=== PATIENT | female | born 1980 | race African-American/Black ===

== ENCOUNTER 2016-03-23 05:50 | Inpatient (IN) ==
[2016-03-15 12:26] LABS: Basophils # 0.1 10*3/uL (0.0-0.2); Basophils % 0.6 % (0.0-0.8); Eosinophils # 0.1 10*3/uL (0.0-0.87); Eosinophils % 1.2 % (0.00-10.9); Hematocrit 38.1 VOL% (35.7-47.0); Hemoglobin 12.7 GM/DL (12.0-16.0); Immature Granulocytes % 0.1 %; Immature Granulocytes Absolute 0.01 #; Lymphocytes # 2.8 10*3/uL (1.4-4.0); Lymphocytes % 35.3 % (21.3-54.2); Mean Corpuscular HGB Conc 33.3 GM/DL (32-36); Mean Corpuscular Hemoglobin 31 PG (27-34); Mean Corpuscular Volume 92.5 FL (87-102); Mean Platelet Volume 9.5 FL (9.6-12.0); Monocytes # 0.5 10*3/uL (0.11-0.8); Monocytes % 6.4 % (1.7-12.7); Neutrophils # 4.4 10*3/uL (1.4-7.4); Neutrophils % 56.4 % (38.7-73.9); Platelet Count 282 10*3/uL (130-400); Red Blood Count 4.12 10*6/uL (3.8-5.5); Red Cell Distribution Width 13.2 % (9.3-17.3); White Blood Count 7.8 10*3/uL (4.5-13.71)
[2016-03-15 12:27] LABS: Apearance,Urine CLEAR (Clear); Bilirubin,Urine Negative (Negative); Blood, Urine Large mg/dL (Negative); Glucose,Urine (UA) Negative (Negative); Ketones,Urine Negative (Negative); Mucus,Urine Occasional /LPF (Occasional); Nitrite,Urine Negative (Negative); Protein,Urine Negative; RBC,Urine 3 /HPF (0-4); Squamous Epithelial Cell,Urine Occasional /HPF (0-10); Urine Color Yellow (Yellow); Urine Specific Gravity 1.017 (1.001-1.035); WBC,Urine 1 /HPF (0-6)
[2016-03-15 12:38] LABS: PT Patient Result 10.4 SECS; Partial Thromboplastin Time 25.9 SECS (0-40)
[2016-03-15 13:02] LABS: Calcium 8.8 MG/DL (8.5-10.1); Osmolality,Calculated 282.1 MOS/KG (273-304); Potassium 3.9 MMOL/L (3.5-5.1)
--- NOTE | 2016-03-15 13:03 | EKG Report ---
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
--- NOTE | 2016-03-15 14:39 | XRay Report ---
XR chest 2V Indication: Preop evaluation Comparison: None Technique: Frontal and lateral views of the chest Findings: Heart size appears within normal limits. No focal consolidation, pleural effusion, or pneumothorax. Osseous and surrounding soft tissue structures demonstrate no acute abnormality. IMPRESSION: No acute cardiopulmonary process demonstrated. PROCEDURE INTERPRETED AT [facility] DEPARTMENT OF RADIOLOGY Final Report Signed by: Dr Tucker Guerra
[2016-03-23] MEDS ORDERED: CLINDAMYCIN INJ 900 MG in PREMIX 1 EACH IV ONE (06:00)
[2016-03-23] MEDS ORDERED: LEVOFLOXACIN INJ 750 MG in PREMIX 1 EACH IV ONE (06:00)
[2016-03-23] MEDS ORDERED: VASOPRESSIN 20 UNITS/ML VIAL ONE ×3 (06:28→08:11)
[2016-03-23] MEDS: LACTATED RINGERS 1,000 ML IV SCH ×2 (06:32→08:16)
[2016-03-23] MEDS ORDERED: LEVOFLOXACIN INJ 150 ML IV ONE (06:37)
[2016-03-23] MEDS ORDERED: CLINDAMYCIN INJ 50 ML IV ONE (06:37)
--- NOTE | 2016-03-23 06:52 | History and Physical Update ---
History and Physical Update - History and Physical H&P was reviewed, the patient examined and there: are no changes in the patients condition since last H&P was completed.
[2016-03-23] MEDS ORDERED: DEXAMETHASONE 10 MG/1 ML VIAL ONE (07:01)
[2016-03-23] MEDS ORDERED: LIDOCAINE 2% 5 ML VIAL ONE (07:01)
[2016-03-23] MEDS ORDERED: ONDANSETRON 4 MG/2 ML VIAL ONE (07:01)
[2016-03-23] MEDS ORDERED: FAMOTIDINE 20 MG/2 ML VIAL IV ONE (07:01)
[2016-03-23] MEDS ORDERED: GLYCOPYRROLATE 0.4 MG/2 ML VIAL ONE (07:01)
[2016-03-23] MEDS ORDERED: NEOSTIGMINE 10 MG/10 ML VIAL ONE (07:01)
[2016-03-23] MEDS ORDERED: PROPOFOL 200 MG/20 ML VIAL IV ONE (07:01)
[2016-03-23] MEDS ORDERED: KETOROLAC 30 MG/1 ML VIAL ONE (07:01)
[2016-03-23] MEDS ORDERED: ROCURONIUM 100 MG/10 ML VIAL IV ONE (07:01)
[2016-03-23 08:15] LABS: Apearance,Urine CLEAR (Clear); Bilirubin,Urine Negative (Negative); Blood, Urine Small mg/dL (Negative); Glucose,Urine (UA) Negative (Negative); Ketones,Urine Negative (Negative); Mucus,Urine Occasional /LPF (Occasional); Nitrite,Urine Negative (Negative); Protein,Urine Negative; RBC,Urine 1 /HPF (0-4); Squamous Epithelial Cell,Urine Occasional /HPF (0-10); Urine Color Straw (Yellow); Urine Specific Gravity 1.005 (1.001-1.035); Urine Urobilinogen < 2.0 EU/DL (0.2-1.0); WBC,Urine <1 /HPF (0-6)
--- NOTE | 2016-03-23 09:21 | Anesthesia ---
Anesthesia Post OP - Post Ansesthetic Evaluation Patient seen in post op: Yes Resp: within normal limits CV: within normal limits Mental: within normal limits Temp: within normal limits [id number]: within normal limits Nausea and Vomiting: within normal limits Pain: within normal limits
--- NOTE | 2016-03-23 09:21 | OB/GYN History & Physical ---
History of Present Illness Chief complaint: symptomatic uterine fibroids desired future fertility History of present illness: Ms. Pretty is a 35 year old female 3 para 0 with chronic pelvic pain and some spotting uterine fibroids who requests conservative surgical management consisting of open multiple myomectomy. Risks benefits alternatives were spontaneous in detail and informed consent was obtained for the above procedures. Home Medications Medication Instructions Recorded Confirmed Type Cholecalciferol (Vitamin D3) 1,000 unit PO DAILY 03/15/16 03/23/16 History [Vitamin D3] Allergies Allergy/AdvReac Type Severity Reaction Status Date / Time Penicillins Allergy Unknown Unknown/Unable Verified 03/15/16 12:05 to obtain 12 point system: reviewed and no additional remarkable complaints except as stated Medical,Surgical,& Family Hx - Medical History Neurology: No history of: Seizures HEENT: History of: Dental Problems (bridge deanne upper and caps) Respiratory: History of: Respiratory Problems (flu vac-no; pneu vac- no) Hematology: History of: Anemia (past hx) Reproductive: History of: Complication (miscarriage x1), Reproductive Problems (fibroids) - Surgical History Reproductive Surgeries: Surgical HX of;: Dilation and Curettage (x1) - Family History Family History: Reports;: Family Heart Disease (mother) - Social History Smoking Status: Never smoker Frequency of Alcohol Use: Occasionally Type of Drug Use: None 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 Vitals: Vital Signs Temp Pulse Resp BP Pulse Ox 03/23/16 06:14 97.6 F 87 18 132/98 98 General appearance: normal weight, no acute distress - Head Head exam: Present: normal inspection, normocephalic, atraumatic - Eye Eye exam: Present: EOMI Pupils: Present: PAU - Neck Neck exam: Present: normal inspection - Respiratory Respiratory exam: Present: clear to auscultation bilaterally - Breast Breasts: as per HPI Menstruation: as per HPI - Cardiovascular Cardiovascular exam: Present: regular rate and rhythm - GI/Abdominal GI/Abdominal exam: Present: normal bowel sounds - Extremities Exam Extremities exam: Present: normal inspection, normal capillary refill - Back Exam Back exam: Present: normal inspection - Neurological Exam Neurological exam: Present: alert, oriented X3 - Psychiatric Psychiatric exam: Present: normal affect, normal mood - Skin Skin exam: Present: normal color, warm Assessment and Plan (1) Fibroid (bleeding) (uterine) Status: Acute Current Visit: Yes (2) Chronic pelvic pain in female Status: Acute Current Visit: Yes (3) desired future fertility Status: Acute Current Visit: Yes Results - Labs CBC & BMP: 03/15/16 12:15 03/15/16 12:15
[2016-03-23] MEDS ORDERED: MIDAZOLAM 2 MG/2 ML VIAL ONE (09:23)
[2016-03-23] MEDS ORDERED: SEVOFLURANE 1 UNIT/15 MINUTE INH ONE (09:23)
[2016-03-23] MEDS ORDERED: HYDROmorphone 2 MG/1 ML VIAL ONE (09:23)
[2016-03-23] MEDS ORDERED: LACTATED RINGERS 1,000 ML IV ONE (09:24)
[2016-03-23] MEDS ORDERED: ACETAMINOPHEN 1,000 MG/100 ML VIAL IV ONE (09:24)
[2016-03-23] MEDS ORDERED: fentaNYL 100 MCG/2 ML VIAL ONE (09:24)
--- NOTE | 2016-03-23 09:32 | Operative Note ---
Date of procedure: 03/23/16 Pre-op diagnosis: symptomatic uterine fibroids dysfunctional bleeding chronic pelvic pain Post-op diagnosis: same Procedure: Open multiple myomectomy After the risks benefits and alternatives are explained to the patient in detail and informed consent was obtained patient was taken to the operating room she's placed in the supine position. After achieving appropriate general endotracheal anesthesia the perineum vagina and abdomen were prepped and draped in usual sterile fashion. A Pugh catheter was placed which revealed clear urine. After the appropriate timeout a Pfannenstiel skin incision was made and carried down through the subcutaneous tissue down the fascia. The midportion and undermined and incised both laterally and cephalad using sharp dissection with curved Villasenor scissors. 2 Chino clamps were used to elevate the rectus fascia superiorly which was bluntly and sharply dissected away from the rectus muscle below. This was repeated inferiorly. The rectus muscles were then bluntly in the midline the peritoneum identified grasped with 2 curved hemostats and entered sharply using the Metzenbaum scissors. The peritoneal incision was carried posteriorly and inferiorly being sure not to bother the bladder below. The uterus was delivered through the Pfannenstiel incision. There is noted to be a large anterior fundal fibroid this was injected with Pitressin which was dilute using a 21-gauge needle. A linear incision was made across the top of the serosa covering the fibroid down to the capsule of the fibroid. A Crile clamp was used to dissect along the capsule. A thyroid tenaculum was used to grasp the top portion of the fibroid Bovie electrocautery was used to dissect out the fibroid cauterizing all venous and arterial contributors. Through this incision there were several other fibroids were accessed and removed in a similar fashion. There was another fibroid posteriorly which was removed in a similar fashion and other multiple small fibroids were removed. The endometrium was not entered on any of the dissections. The myometrium was reapproximated on all incision using 0 Vicryl suture in a [id number] fashion using multiple sutures. The serosa was then closed using 2-0 Vicryl suture in a baseball stitch fashion. Hemostasis of all areas noted be hemostatic. In 1 fibroid that was a right lateral close to the right fallopian tube and round ligament a small amount of Gelfoam was used for assured hemostasis. There was one other fibroid that was down closer to the cervix that was extending into the left pelvic sidewall and to the region the ureter. This one was not dissected out and removed. The abdomen was copiously irrigated all areas noted be hemostatic and Interceed was cut and placed over the suture lines on top fundus of the uterus NOTED to be correct the peritoneum closed with 3-0 Vicryl suture in running fashion the subfascial area made hemostatic using cautery and the fascia closed with #1 PDS suture in a running fashion beginning at both angles and overlapping slightly midline. The subcutaneous tissue was irrigated and made hemostatic using electrocautery closed with 2-0 Vicryl suture in a running fashion and skin was closed skin bronson and a sterile pressure bandage was applied to the wound. All sponge needle and instrument counts were correct 3 to the procedure. Patient's urine was running clear but the beginning in the procedure. Patient was awoken from anesthesia without complication taken recovery room in stable condition Anesthesia: GETA Surgeon / Physician: Kyle Glaser Estimated blood loss: other (100) Specimens: other (multiple uterine leiomyomata) Condition: stable Disposition: floor Results - Labs CBC & BMP: 03/15/16 12:15 03/15/16 12:15 Discharge Plan - Discharge Medications No Action Cholecalciferol (Vitamin D3) [Vitamin D3] 1,000 unit PO DAILY - Follow Up or Referral - Forms/Instructions
[2016-03-23] MEDS ORDERED: MAGNESIUM HYDROXIDE SUSP 30 ML UDCUP PO PRN (09:33)
[2016-03-23] MEDS ORDERED: ONDANSETRON 4 MG/2 ML VIAL IV PRN (09:33)
[2016-03-23] MEDS ORDERED: BISACODYL 10 MG SUPP RECTAL PRN (09:33)
[2016-03-23] MEDS ORDERED: DOCUSATE SODIUM 100 MG CAPSULE PO PRN (09:33)
[2016-03-23] MEDS ORDERED: IBUPROFEN 800 MG TABLET PO PRN (09:33)
[2016-03-23] MEDS ORDERED: ACETAMINOPHEN 325 MG TABLET PO PRN (09:33)
[2016-03-23] MEDS ORDERED: BENZOCAINE/MENTHOL LOZENGE 18/BOX PO PRN (09:33)
[2016-03-23] MEDS ORDERED: diphenhydrAMINE CAP 25 MG CAPSULE PO PRN (11:14)
[2016-03-23] MEDS ORDERED: PROMETHAZINE 25 MG/1 ML VIAL IM PRN (16:31)
--- NOTE | 2016-03-23 17:12 | OB/GYN Progress Note ---
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 - Constitutional Vitals: Vital Signs Temp Pulse Pulse Resp BP Pulse Ox Pulse Ox 03/23/16 11:18 97.8 F 94 H 20 118/72 100 03/23/16 10:53 97.2 F L 80 18 130/86 99 03/23/16 10:48 97.2 F L 89 20 130/80 100 03/23/16 10:25 97.6 F 74 16 157/93 100 03/23/16 10:18 97.4 F L 88 18 126/78 99 03/23/16 10:09 97.0 F L 82 14 156/94 99 03/23/16 10:07 82 14 156/94 99 03/23/16 10:03 97.4 F L 95 H 18 128/80 100 03/23/16 09:57 71 23 161/93 98 03/23/16 09:48 97.6 F 81 18 152/89 100 03/23/16 09:47 69 14 137/80 99 03/23/16 09:37 69 24 124/77 98 03/23/16 09:33 97.8 F 75 18 158/92 94 L 03/23/16 09:32 71 24 123/78 98 03/23/16 09:27 71 24 123/77 98 03/23/16 09:22 72 25 H 125/80 98 03/23/16 09:17 97.6 F 75 14 123/80 98 03/23/16 06:14 97.6 F 87 18 132/98 98 Results - Labs CBC & BMP: 03/15/16 12:15 03/15/16 12:15
[2016-03-24 06:54] LABS: Basophils % 0.2 % (0.0-0.8); Eosinophils % 0.1 % (0.00-10.9); Hematocrit 28.8 VOL% (35.7-47.0); Hemoglobin 9.7 GM/DL (12.0-16.0); Immature Granulocytes % 0.4 %; Immature Granulocytes Absolute 0.05 #; Lymphocytes # 2.1 10*3/uL (1.4-4.0); Lymphocytes % 15.9 % (21.3-54.2); Mean Corpuscular HGB Conc 33.7 GM/DL (32-36); Mean Corpuscular Hemoglobin 31 PG (27-34); Mean Corpuscular Volume 93.2 FL (87-102); Mean Platelet Volume 10.3 FL (9.6-12.0); Monocytes # 1.2 10*3/uL (0.11-0.8); Monocytes % 9.5 % (1.7-12.7); Neutrophils # 9.7 10*3/uL (1.4-7.4); Neutrophils % 73.9 % (38.7-73.9); Platelet Count 252 10*3/uL (130-400); Red Blood Count 3.09 10*6/uL (3.8-5.5); Red Cell Distribution Width 12.8 % (9.3-17.3); White Blood Count 13.1 10*3/uL (4.5-13.71)
[2016-03-24] MEDS: LACTATED RINGERS 1,000 ML IV SCH ×3 (08:12→10:12)
--- NOTE | 2016-03-24 09:07 | Discharge Summary ---
Hospital Course - Hospital Course Hospital Course: Postoperatively the patient did well. She had quick return of bowel and bladder function. She remained afebrile and normotensive throughout her hospitalization. She is counseled discharged on postoperative day #1 on a regular diet Diagnosis - Discharge Diagnosis (1) Fibroid (bleeding) (uterine) Status: Acute (2) Chronic pelvic pain in female Status: Acute (3) desired future fertility Status: Acute Discharge Plan - Discharge Data Disposition: Disch To Home/Self Care Condition at Discharge: Stable Discharge Diet: regular diet Activity: increase activity as tolerated, no lifting, other (pelvic rest) Hygiene: may shower Weight Bearing at Discharge: full weight bearing Driving: not until seen by doctor Contact your physician if you experience:: fever over 101, Difficulty voiding, Redness or swelling, Nausea/Vomiting, Shortness of breath, Bleeding, pain uncontrolled by pain medications - Discharge Medications New oxyCODONE/ACETAMINOPHEN 5-325 [Percocet 5-325] 1 tablet PO Q4H PRN #20 tablet PRN Reason: Abdominal Pain Continue Cholecalciferol (Vitamin D3) [Vitamin D3] 1,000 unit PO DAILY - Follow Up or Referral Follow Up: Kyle Glaser MD [Physician] - 1 Week - Forms/Instructions Exam - Constitutional Vitals: Period Temp Pulse Resp BP Sys/Teran Pulse Ox Last 24 Hr 97.0 F-98.2 F 69-95 14-25 105-161/53-94 94-100 Discharge Results Labs on day of discharge: Labs from last 24 hours 03/24/16 05:20 WBC 13.1 RBC 3.09 L Hgb 9.7 L Hct 28.8 L MCV 93.2 MCH 31 MCHC 33.7 RDW 12.8 Plt Count 252 MPV 10.3 Neut % (Auto) 73.9 Lymph % (Auto) 15.9 L [place] % (Auto) 9.5 Eos % (Auto) 0.1 Baso % (Auto) 0.2 Neut # (Auto) 9.7 H Lymph # (Auto) 2.1 [place] # (Auto) 1.2 H Eos # (Auto) 0.0 Baso # (Auto) 0.0 Immature Gran % 0.4 Nucleated RBC % 0.0 Immature Gran # 0.05 Nucleated RBCs # 0.00 DS: Provider Date of admission: 03/23/2016 Discharging clinician: Tyson Martin Expected date of discharge: 03/24/16
[2016-03-24 11:40] VITALS: BP 117/66
--- NOTE | 2016-03-25 10:20 | Pathology Report from [facility] ---
ACCESSION # : [id number] PATIENT NAME : Rafael Andrade ORDERING DR : MANOJ ELIZONDO MD CLINICAL HX: Symptomatic/multiple uterine fibroids POST-OP DX: Same SPECIMEN INFO: Uterine fibroids GROSS DESCRIPTION: Received in formalin labeled "RAFAEL ANDRADE" are five round pink blackmon fibroids weighing 444 gms and measuring from 3.5 x 2.2 cm up to 7.5 x 6.9 cm. Sectioning reveals additional well-circumscribed white whorrled nodules. Sectioning one of the nodules reveals a yellow blackmon degenerative center with some calcification noted. Timber Faller sections of nodules are submitted in cassettes A-D. DIAGNOSIS FOR RAFAEL ANDRADE: UTERINE FIBROIDS, MYOMECTOMY: Leiomyomas, ( 5) with fibrosis and focal dystrophic calcification. SERVICE DATE: 03/23/2016 REPORT DATE: 03/24/2016 PATHOLOGIST: Ti Zendejas M.D. [facility]
--- NOTE | 2016-03-26 11:42 | Pathology Report from [facility] ---
ACCESSION # : [id number] PATIENT NAME : Rafael Andrade ORDERING DR : MANOJ ELIZONDO MD CLINICAL HX: Symptomatic/multiple uterine fibroids POST-OP DX: Same SPECIMEN INFO: Uterine fibroids GROSS DESCRIPTION: Received in formalin labeled "RAFAEL ANDRADE" are five round pink blackmon fibroids weighing 444 gms and measuring from 3.5 x 2.2 cm up to 7.5 x 6.9 cm. Sectioning reveals additional well-circumscribed white whorrled nodules. Sectioning one of the nodules reveals a yellow blackmon degenerative center with some calcification noted. Kiln Tester sections of nodules are submitted in cassettes A-D. DIAGNOSIS FOR RAFAEL ANDRADE: UTERINE FIBROIDS, MYOMECTOMY: Leiomyomas, ( 5) with fibrosis and focal dystrophic calcification. SERVICE DATE: 03/23/2016 REPORT DATE: 03/24/2016 PATHOLOGIST: Ti Zendejas M.D. [facility]
== END 2016-03-24 16:06 | disposition home or self-care (01) | DRG 743 ==
LOC: N.OR 05:50 → N.SDSINP 05:50 → EDSTATUS 07:30 → N.2E 09:00
PROVIDERS: ADMIT Specialist; ATTEND Specialist